=== PATIENT | male | born 2000 | race Caucasian/White ===

== ENCOUNTER 2025-10-25 09:44 | Emergency (ER) | payer MEDICAID, OTHER ==
[~2025-10-25] VITALS: Ht 172.7 cm; Wt 75.0 kg
[2025-10-25 09:54] VITALS: O2SAT 97
[2025-10-25 10:00] VITALS: BP 131/81; PULSE 77; RESP 18; TEMP 36.8; O2SAT 98
[2025-10-25] MEDS: TETANUS, DIPHTHERIA, PERTUSSIS VAC/PF 0.5ML (>10YR OLD) IM ONE (10:21)
[2025-10-25] MEDS ORDERED: CEPH500C2 MT (10:36)
[2025-10-25] MEDS ORDERED: BO1 TP (10:36)
[2025-10-25] MEDS: LIDOCAINE HCL 1% 20ML VIAL INFIL ONE (11:04)
== END 2025-10-25 11:06 | disposition home or self-care (01) ==
LOC: ER 09:44
DX: S61.210A Laceration without foreign body of right index finger without damage to nail, initial encounter (principal); Z79.899 Other long term (current) drug therapy; X58.XXXA Exposure to other specified factors, initial encounter; Y93.89 Activity, other specified; Y92.89 Other specified places as the place of occurrence of the external cause; Y99.8 Other external cause status
CPT/HCPCS: 99283; 90715; 12002; 90471; J2003

== ENCOUNTER 2025-11-03 20:16 | Emergency (ER) | payer OTHER ==
[~2025-11-03] VITALS: Ht 172.7 cm; Wt 96.0 kg
[~2025-11-03 20:16] MED LIST: BO1 TP; CEPH500C2 MT
[2025-11-03 20:26] VITALS: TEMP 36.8; O2SAT 98
[2025-11-03 22:38] VITALS: BP 126/80; PULSE 55; RESP 16; O2SAT 99
== END 2025-11-03 22:44 | disposition home or self-care (01) ==
LOC: ER 20:16
DX: S61.210D Laceration without foreign body of right index finger without damage to nail, subsequent encounter (principal); X58.XXXD Exposure to other specified factors, subsequent encounter
CPT/HCPCS: 99282